=== PATIENT | female | born 1955 | race Caucasian/White ===

== ENCOUNTER → 2017-06-25 | Outpatient (CLI) | payer OTHER | LOC: CIMAGING 14:59 | PROVIDERS: ATTEND Internal Medicine Endocrinology, Diabetes & Metabolism | DX: E04.2 Nontoxic multinodular goiter (principal); E03.9 Hypothyroidism, unspecified; Z79.899 Other long term (current) drug therapy | CPT/HCPCS: 76536-PO ==

== ENCOUNTER → 2017-07-16 | Outpatient (CLI) | payer OTHER | LOC: CIMAGING 07:10 | PROVIDERS: ATTEND Physician Assistant | DX: R10.11 Right upper quadrant pain (principal); K82.4 Cholesterolosis of gallbladder; K76.0 Fatty (change of) liver, not elsewhere classified; R16.0 Hepatomegaly, not elsewhere classified | CPT/HCPCS: 76705-PO ==

== ENCOUNTER 2018-04-16 05:58 | Emergency (ER) | payer OTHER ==
--- NOTE | 2018-04-16 06:10 | EDPHY ---
H & P Stated Complaint: CP STARTED @ 5AM Time Seen by Provider: 04/16/18 06:10 HPI/ROS: HPI CHIEF COMPLAINT: Left-sided chest pressure, hypertension HISTORY OF PRESENT ILLNESS: Patient very pleasant 63-year-old female history of hypertension, diabetes, hyperlipidemia who presents emergency room by private vehicle with chest pressure. Patient reports that she woke up around 5: 00 a.m. To get ready for work and woke up and realized that she had pressure in left side of her chest. This was abnormal for her. Describes it as a pressure sensation really not radiating. She took her blood pressure got a high reading at home. Due to the ongoing chest pressure she decided come the emergency room. She arrives by private vehicle. She complains of chest pressure left-sided. No jaw pain no arm pain. Denies nausea or vomiting. Denies diaphoresis. She reports to me her blood pressure usually runs in the 130s Upon arrival to the emergency room is in the 190 systolic. Past Medical History: Hypertension, hyperlipidemia, diabetes Past Surgical History: Denies recent surgical history patient does report she had a cardiac catheterization in 2007 which she reports showed coronary artery disease but minimal. Social History: Denies drugs alcohol tobacco Family History: Noncontributory ROS REVIEW OF SYSTEMS: 10 Systems were reviewed and negative with the exception of the elements mentioned in the history of present illness. Exam Constitutional triage nursing summary reviewed, vital signs reviewed, awake/ alert. Hypertensive at triage. Eyes normal conjunctivae and sclera, EOMI, PERRLA. HENT normal inspection, atraumatic, moist mucus membranes, no epistaxis, neck supple/ no meningismus, no raccoon eyes. Respiratory clear to auscultation bilaterally, normal breath sounds, no respiratory distress, no wheezing. Cardiovascular rate normal, regular rhythm, no murmur, no edema, distal pulses normal. Gastrointestinal soft, non-tender, no rebound, no guarding, normal bowel sounds, no distension, no pulsatile mass. Genitourinary no CVA tenderness. Musculoskeletal no midline vertebral tenderness, full range of motion, no calf swelling, no tenderness of extremities, no meningismus, good pulses, neurovascularly intact. Skin pink, warm, & dry, no rash, skin atraumatic. Neurologic awake, alert and oriented x 3, AAOx3, moves all 4 extremities equally, motor intact, sensory intact, CN II-XII intact, normal cerebellar, normal vision, normal speech. Psychiatric normal mood/affect. Heme/Lymph/Immune no lymphadenopathy. Differential Diagnosis: Differential diagnosis includes but is not limited to: ACS, atypical chest pain, pneumothorax, pneumonia, pulmonary embolism, aortic dissection, congestive heart failure, tumor, musculoskeletal pain, esophageal pain, GERD, peptic ulcer disease, pancreatitis Medical Decision Making: Plan for this patient IV establishment IV fluid bolus , EKG, nitroglycerin to see if this helps her blood pressure and chest pressure chest x-ray, troponin, rule out acute coronary syndrome. Re-evaluation: EKG interpretation by me on record in [employer] system. Impression time of EKG 6:15 a.m., sinus rhythm rate of 81, right bundle-branch block present. No signs of acute ischemia no ST elevation. No ST depression. Cardiovascular risk factors include her age, hypertension, hyperlipidemia, diabetes, obesity. Patient given a dose of nitroglycerin 136/90. Patient's blood pressure and chest discomfort improved after nitroglycerin. Troponin 0.00. ED x-ray chest one view: Negative for acute cardiopulmonary disease. 0751: Patient here with chest pressure left-sided resolved with nitroglycerin. Patient was noted to be hypertensive. 190s. EKG is stable the right bundle-branch block without any signs of acute ischemia Troponin negative. Plan for hospital admission for further cardiac evaluation and blood pressure observation. Patient here with cardiovascular risk factors include her age, hypertension, hyperlipidemia and diabetes. Obesity. Updated patient agrees for admission. Heart score is a 5. Long discussion with the patient about her cardiovascular risk factors and chest pressure left-sided and hypertension She has agreed to stay for observation today further cardiac evaluation. 0757: Hospitalist service consulted. Agree to admit. Dr. Ayoub. Through [facility]. Source: Patient - Personal History Current Tetanus Diphtheria and Acellular Pertussis (TDAP): No - Medical/Surgical History Hx Asthma: Yes Hx Chronic Respiratory Disease: No Hx Diabetes: Yes Hx Cardiac Disease: No Hx Renal Disease: No Hx Cirrhosis: No Hx Alcoholism: No Hx HIV/AIDS: No Hx Splenectomy or Spleen Trauma: No Other PMH: angio/hypothyroid/knee surgery/back pain, DM,ASTHMA - Social History Smoking Status: Never smoked Constitutional: Initial Vital Signs Temperature (C) 36.6 C 04/16/18 06:02 Heart Rate 88 04/16/18 06:02 Respiratory Rate 16 04/16/18 06:02 Blood Pressure 196/99 H 04/16/18 06:02 O2 Sat (%) 96 04/16/18 06:02 O2 Delivery Mode Room Air Allergies/Adverse Reactions: nisoldipine [From Sular] Allergy (Severe, Verified 01/09/09 20:34) Hypotension ibuprofen Allergy (Intermediate, Verified 01/09/09 20:37) Hives Sulfa (Sulfonamide Antibiotics) Allergy (Intermediate, Verified 01/09/09 20:37) Other-Enter Comments codeine Allergy (Mild, Verified 01/09/09 20:37) Rash metoprolol succinate [From Toprol XL] Allergy (Unknown, Verified 01/09/09 20:37) Unknown pioglitazone HCl [From Actos] Allergy (Unknown, Verified 01/09/09 20:37) Unknown rosiglitazone maleate [From Avandia] Allergy (Unknown, Verified 01/09/09 20:34) CHEST PAIN thimerosal [Thimerosal] Allergy (Unknown, Verified 01/09/09 20:40) VERAPMIL Allergy (Mild, Uncoded 01/09/09 20:34) Edema of Extremities Home Medications: Medication Instructions Recorded Insulin Aspart [Novolog Flexpen] 6 - 15 unit SQ TIDMEAL 01/09/09 Insulin Glargine,Hum.rec.anlog 60 unit SQ HS 01/09/09 [Basaglar Kwikpen U-100] Levothyroxine [Synthroid 75 mcg 75 mcg PO DAILY06 01/09/09 (*)] metFORMIN HCL [Glucophage 500 mg 1,500 mg PO DAILY18 01/09/09 (*)] Albuterol [Proventil Inhaler HFA 2 puffs IH Q6HRS PRN 07/17/15 (*)] Ascorbic Acid [Vitamin C 250 mg 250 mg PO DAILY 04/16/18 (*)] Aspirin [Aspirin 81mg (*)] 81 mg PO DAILY 04/16/18 Candesartan Cilexetil [Atacand] 16 mg PO DAILY18 04/16/18 Cholecalciferol Vit D3 [Vitamin D3 1,000 units PO DAILY 04/16/18 (*)] Herbals/Supplements -Info Only 1 ea PO DAILY 04/16/18 Hydrochlorothiazide [HCTZ (*)] 12.5 mg PO DAILY18 04/16/18 Medical Decision Making - Data Points Laboratory Results: Laboratory Results 04/16/18 06:35 04/16/18 06:35 Medications Given: Discontinued Medications Aspirin (Aspirin) 81 mg PO DAILY [facility] Stop: 10/13/18 08:59 Last Admin: 04/16/18 09:20 Dose: Not Given Insulin Human Lispro (Humalog Lispro) 5 unit SC ONCE ONE Stop: 04/16/18 08:32 Last Admin: 04/16/18 08:49 Dose: 5 unit Insulin Human Lispro (Humalog Lispro) 0 unit SC TIDMEAL YOUNG PRN Reason: Protocol Stop: 10/13/18 11:59 Last Admin: 04/16/18 12:36 Dose: Not Given Nitroglycerin (Nitrostat) 0.4 mg SL EDNOW ONE Stop: 04/16/18 06:19 Last Admin: 04/16/18 06:23 Dose: 1 tab Point of Care Test Results: Chemistry 04/16/18 04/16/18 04/16/18 14:44 10:30 06:53 POC Troponin I 0.00 ng/mL ng/mL 0.00 ng/mL ng/mL 0.00 ng/mL ng/mL (0.00-0.08) (0.00-0.08) (0.00-0.08) Departure - Departure Disposition: [facility] Inpatient Acute Clinical Impression: Chest pain Qualifiers: Chest pain type: unspecified Qualified Code(s): R07.9 - Chest pain, unspecified Hypertension Qualifiers: Hypertension type: unspecified Qualified Code(s): I10 - Essential (primary) hypertension Condition: Good Additional Instructions: Your blood tests and EKGs were negative for a heart attack. I strongly recommend that you re-establish with [facility]. You should be seen in 1-2 weeks for consideration of a stress test. Please seek medical attention if you develop more chest pain. I encourage you to keep a blood pressure log. Referrals: PRITI BETANCOURT [Primary Care Provider] - As per Instructions
[2018-04-16] MEDS ORDERED: NITROGLYCERIN 0.4 MG BTL SL ONE (06:18)
[2018-04-16 06:51] LABS: PLATELET COUNT 188 10^3/uL (150-400)
[2018-04-16 07:18] LABS: INR 0.89 (0.83-1.16); PROTIME(PATIENT) 12.3 SEC (12.0-15.0)
[2018-04-16] MEDS ORDERED: INSULIN ASPART NovoLOG 70/30 100 UNITS/ML SYR SC ONE (08:28)
[2018-04-16] MEDS ORDERED: INSULIN LISPRO 100 UNIT/ML SC ONE (08:31)
[2018-04-16] MEDS ORDERED: NITROGLYCERIN 0.4 MG BTL SL PRN (08:49)
[2018-04-16] MEDS ORDERED: ACETAMINOPHEN 325 MG TAB PO PRN (08:49)
[2018-04-16] MEDS ORDERED: ALBUTEROL 60 PUFFS/8 GM MDI IH PRN (08:51)
[2018-04-16] MEDS ORDERED: D50W 25 GM/50 ML SYR IVP PRN (08:51)
--- NOTE | 2018-04-16 08:55 | PDGENHP ---
History and Physical - Chief Complaint chest pain - History of Present Illness 63yo F with HTN, diabetes, HLD presents with chest pain. Started around 5 am while getting ready for work. Did not wake her up from sleep. Mid-left side of chest without radiation. Associated with shortness of breath and palpitations but no nausea or diaphoresis. Not positional, pleuritic, or exertional. Symptoms lasted 30-60 minutes before resolving spontaneously. Had recurrence of milder chest pain in ED that seemed to improved with sublingual nitroglycerin. She notes one episode of chest "twinge" that only lasted a few seconds last week. Otherwise, she has not gotten any chest pain with her usual exercise ( walking, lifting weights). Denies leg swelling, orthopnea. Recently had viral URI symtpoms but these resolved about a week ago. In the ED, initial POC troponin was 0.00. Her ECG showed RBBB (stable from prior) without acute ST-T wave segment changes. Her SBP was initially 190s and improved to 130s after nitroglycerin. She is being admitted for further evaluation. Of note, she has prevoiusly seen Dr Teofilo Rosen in cardiology clinic. She had an exercise stress test and echocardiogram 01/2016 for shortness of breath. These were relatively unremarkable except for mild diastolic dysfunction. She also had a coronary angiogram 01/2009 that was normal. History Information - Allergies/Home Medication List Allergies/Adverse Reactions: nisoldipine [From Sular] Allergy (Severe, Verified 01/09/09 20:34) Hypotension ibuprofen Allergy (Intermediate, Verified 01/09/09 20:37) Hives Sulfa (Sulfonamide Antibiotics) Allergy (Intermediate, Verified 01/09/09 20:37) Other-Enter Comments codeine Allergy (Mild, Verified 01/09/09 20:37) Rash metoprolol succinate [From Toprol XL] Allergy (Unknown, Verified 01/09/09 20:37) Unknown pioglitazone HCl [From Actos] Allergy (Unknown, Verified 01/09/09 20:37) Unknown rosiglitazone maleate [From Avandia] Allergy (Unknown, Verified 01/09/09 20:34) CHEST PAIN thimerosal [Thimerosal] Allergy (Unknown, Verified 01/09/09 20:40) VERAPMIL Allergy (Mild, Uncoded 01/09/09 20:34) Edema of Extremities Home Medications: Insulin Aspart [Novolog Flexpen] 6 - 15 unit SQ TIDMEAL 01/09/09 [Last Taken Unknown] Insulin Glargine,Hum.rec.anlog [Basaglar Kwikpen U-100] 60 unit SQ HS 01/09/09 [ Last Taken Unknown] Levothyroxine [Synthroid 75 mcg (*)] 75 mcg PO DAILY06 01/09/09 [Last Taken ] metFORMIN HCL [Glucophage 500 mg (*)] 1,500 mg PO DAILY18 01/09/09 [Last Taken Unknown] Albuterol [Proventil Inhaler HFA (*)] 2 puffs IH Q6HRS PRN 07/17/15 [Last Taken Unknown] Ascorbic Acid [Vitamin C 250 mg (*)] 250 mg PO DAILY 04/16/18 [Last Taken Unknown] Aspirin [Aspirin 81mg (*)] 81 mg PO DAILY 04/16/18 [Last Taken Unknown] Candesartan Cilexetil [Atacand] 16 mg PO DAILY18 04/16/18 [Last Taken Unknown] Cholecalciferol Vit D3 [Vitamin D3 (*)] 1,000 units PO DAILY 04/16/18 [Last Taken Unknown] Herbals/Supplements -Info Only 1 ea PO DAILY 04/16/18 [Last Taken Unknown] Hydrochlorothiazide [HCTZ (*)] 12.5 mg PO DAILY18 04/16/18 [Last Taken Unknown] I have personally reviewed and updated: family history, medical history, social history, surgical history - Past Medical History Additional medical history: HTN, insulin-dependent diabetes, HLD, asthma, GERD, non-toxic multinodular goiter, hypothyroidism, spinal stenosis, SVT - Surgical History Additional surgical history: multiple orthopedic surgeries - Family History Additional family history: no history of coronary artery disease - Social History Smoking Status: Never smoked Alcohol Use: None Drug Use: None Additional social history: Adult son in the area. Works with children. Review of Systems Review of Systems: ROS: 10pt was reviewed & negative except for what was stated in HPI & below Physical Exam Physical Exam: Temp Pulse Resp BP Pulse Ox 36.6 C 81 16 157/95 H 95 04/16/18 06:02 04/16/18 08:51 04/16/18 08:51 04/16/18 08:51 04/16/18 08:51 Constitutional: no apparent distress, appears nourished, not in pain Eyes: PERRL, anicteric sclera, EOMI Ears, Nose, Mouth, Throat: moist mucous membranes, hearing normal, ears appear normal, no oral mucosal ulcers Cardiovascular: regular rate and rhythym, no murmur, rub, or gallop, No JVD, No edema Respiratory: no respiratory distress, No inspiratory crackles Gastrointestinal: normoactive bowel sounds, soft, non-tender abdomen, no palpable masses Genitourinary: no bladder fullness, no bladder tenderness Skin: warm, normal color, no rashes or abrasions, no fluctuance, no induration, No mottled Musculoskeletal: full muscle strength, no muscle tenderness, normal joint ROM, no joint effusions Neurologic: AAOx3 Psychiatric: interacting appropriately, not anxious, not encephalopathic, thought process linear Lab Data & Imaging Review 04/16/18 06:35 04/16/18 06:35 WBC 6.22 10^3/uL (3.80-9.50) 04/16/18 06:35 RBC 4.38 10^6/uL (4.18-5.33) 04/16/18 06:35 Hgb 14.0 g/dL (12.6-16.3) 04/16/18 06:35 Hct 39.9 % (38.0-47.0) 04/16/18 06:35 MCV 91.1 fL (81.5-99.8) 04/16/18 06:35 MCH 32.0 pg (27.9-34.1) 04/16/18 06:35 MCHC 35.1 g/dL (32.4-36.7) 04/16/18 06:35 RDW 12.0 % (11.5-15.2) 04/16/18 06:35 Plt Count 188 10^3/uL (150-400) 04/16/18 06:35 MPV 10.5 fL (8.7-11.7) 04/16/18 06:35 Neut % (Auto) 58.6 % (39.3-74.2) 04/16/18 06:35 Lymph % (Auto) 26.7 % (15.0-45.0) 04/16/18 06:35 Piute % (Auto) 8.7 % (4.5-13.0) 04/16/18 06:35 Eos % (Auto) 4.2 % (0.6-7.6) 04/16/18 06:35 Baso % (Auto) 1.6 % (0.3-1.7) 04/16/18 06:35 Nucleat RBC Rel Count 0.0 % (0.0-0.2) 04/16/18 06:35 Absolute Neuts (auto) 3.65 10^3/uL (1.70-6.50) 04/16/18 06:35 Absolute Lymphs (auto) 1.66 10^3/uL (1.00-3.00) 04/16/18 06:35 Absolute Monos (auto) 0.54 10^3/uL (0.30-0.80) 04/16/18 06:35 Absolute Eos (auto) 0.26 10^3/uL (0.03-0.40) 04/16/18 06:35 Absolute Basos (auto) 0.10 10^3/uL (0.02-0.10) 04/16/18 06:35 Absolute Nucleated RBC 0.00 10^3/uL (0-0.01) 04/16/18 06:35 Immature Gran % 0.2 % (0.0-1.1) 04/16/18 06:35 Immature Gran # 0.01 10^3/uL (0.00-0.10) 04/16/18 06:35 PT 12.3 SEC (12.0-15.0) 04/16/18 06:35 INR 0.89 (0.83-1.16) 04/16/18 06:35 APTT 25.9 SEC (23.0-38.0) 04/16/18 06:35 Sodium 133 mEq/L (135-145) L 04/16/18 06:35 Potassium 3.9 mEq/L (3.5-5.2) 04/16/18 06:35 Chloride 100 mEq/L (97-110) 04/16/18 06:35 Carbon Dioxide 22 mEq/l (22-31) 04/16/18 06:35 Anion Gap 11 mEq/L (6-14) 04/16/18 06:35 BUN 21 mg/dL (7-23) 04/16/18 06:35 Creatinine 0.7 mg/dL (0.6-1.0) 04/16/18 06:35 Estimated GFR > 60 04/16/18 06:35 Glucose 145 mg/dL (70-100) H 04/16/18 06:35 Calcium 9.5 mg/dL (8.5-10.4) 04/16/18 06:35 POC Troponin I 0.00 ng/mL (0.00-0.08) 04/16/18 06:53 NT-Pro-B Natriuret Pep 28 pg/mL (0-125) 04/16/18 06:35 Interpretation: CXR: normal heart size, no infiltrate or effusion, normal pulmonary vasculature, stable mild elevation of right hemidiaphragm EKG additional interpertation: ECG: NSR, RBBB (old), poor R wave progression ( old), no acute ischemic changes Assessment & Plan Assessment: 63yo F with HTN, diabetes, HLD presents with chest pain. Plan: 1. Chest pain: HEART score 5 (>3 risk factors, age, moderately suspicious) indicating 12-16.6% risk of adverse cardiac event requiring evaluation in the hospital. Initial trop/ecg without acute ischemic changes. - Serial troponin/ecg - Telemetry - Offered pharmacologic stress test (has abnormal ecg at baseline). Patient not interested in this at present due to insurance issues so have not ordered. - BP control per below 2. HTN: Initially quite hypertensive on arrival which may have been driving symptoms. Now normal. - Continue home meds, adjust as necessary 3. Diabetes: Continue home insulin regimen. 4. HLD: Not on statin. 5. Hypothyroid: Continue LT4 replacement. 6. Asthma: No exacerbation. Albuterol prn. VTE ppx: low risk, SCDs Code: full Diet: cardiac Dispo: Admit under observation, possibly discharge later this afternoon if cardiac work up negative/normal
[2018-04-16] MEDS ORDERED: ASPIRIN 81 MG CHEWABLE TAB PO SCH (09:00)
[2018-04-16] MEDS ORDERED: ASPIRIN 81 MG CHEWABLE TAB ONE (09:20)
[2018-04-16] MEDS ORDERED: INSULIN LISPRO 100 UNIT/ML SC SCH (12:00)
[2018-04-16 15:51] VITALS: BP 125/78
[2018-04-16] MEDS ORDERED: metFORMIN HCL 500 MG TAB PO SCH (18:00)
[2018-04-16] MEDS ORDERED: HYDROCHLOROTHIAZIDE 12.5 MG CAP PO SCH (18:00)
[2018-04-16] MEDS ORDERED: INSULIN GLARGINE 100 UNITS/ML UNIT SC SCH (21:00)
[2018-04-17] MEDS ORDERED: LEVOTHYROXINE 75 MCG TAB PO SCH (06:00)
[2018-04-17] MEDS ORDERED: CANDESARTAN CILEXETIL 8 MG TAB PO SCH (18:00)
--- NOTE | 2018-04-18 07:33 | CPEKG ---
Test Reason : OPEN Blood Pressure : / mmHG Vent. Rate : 081 BPM Atrial Rate : 082 BPM P-R Int : 177 ms QRS Dur : 133 ms QT Int : 373 ms P-R-T Axes : 066 -31 020 degrees QTc Int : 433 ms Sinus rhythm Right bundle branch block Confirmed by Tao Davison ([id number] on 04/18/2018 7:33:24 AM Referred By: Tao Davison Confirmed By:Tao Davison
== END 2018-04-16 15:51 | disposition still patient (30) ==
LOC: UNDOADMOB 07:50
DX: R07.89 Other chest pain (principal); I10 Essential (primary) hypertension; E11.9 Type 2 diabetes mellitus without complications; E78.5 Hyperlipidemia, unspecified; E66.9 Obesity, unspecified
CPT/HCPCS: 84484-ER; J1815

== ENCOUNTER → 2018-08-11 | Outpatient (CLI) | payer OTHER | LOC: CIMAGING 07:25 ==